=== PATIENT | female | born 1980 | race African-American/Black ===

== ENCOUNTER → 2016-07-31 | Outpatient (CLI) | payer BC ==
[~2016-07-31] MED LIST: ALEVE 220MG220 MG PO; BENADRYL25 M2 PO; CARAFATE 1GM1 G PO; DEXILANT30 MG PO; LIORESAL 1010 MG/TAB PO; MOBIC 7.5MG7.5 MG PO; MULTIPLE VITAMI1 CAP PO; NEURONTIN100 MG/CAP PO; NO HOME MEDICATIONS; NORCO 325 MG-51 TAB PO; PREVACID 15MG15 M1 PO; REGLAN 10MG10 MG/TAB PO
== END ==
LOC: MHCPAIN 12:08
DX: G89.29 Other chronic pain (principal); M47.817 Spondylosis without myelopathy or radiculopathy, lumbosacral region; M54.16 Radiculopathy, lumbar region; M53.3 Sacrococcygeal disorders, not elsewhere classified
CPT/HCPCS: G0463

== ENCOUNTER → 2016-09-11 | Outpatient (CLI) | payer BC | LOC: MHCPAIN 10:43 | DX: G89.29 Other chronic pain (principal); M47.817 Spondylosis without myelopathy or radiculopathy, lumbosacral region; M54.16 Radiculopathy, lumbar region; M53.3 Sacrococcygeal disorders, not elsewhere classified | CPT/HCPCS: G0463 ==

== ENCOUNTER 2016-09-25 08:44 | Outpatient (CLI) | payer BC ==
[2016-09-25] VITALS (7 sets, daily range): BP systolic 106–145; BP diastolic 67–89; PULSE 70–92
[~2016-09-25] VITALS: Ht 149.9 cm; Wt 47.7 kg
[~2016-09-25 08:44] MED LIST changes: -LIORESAL 1010 MG/TAB PO
[2016-09-25] MEDS ORDERED: LIORESAL 1010 MG/TAB PO (09:04)
[2016-09-25 16:48] LABS: CSF APPEARANCE CLEAR; CSF COLOR COLORLESS
[2016-09-25 20:17] LABS: CEREBROSPINAL TUBE #4
[2016-09-29 10:27] LABS: ALBUMIN CSF 9.4 mg/dL (<=27.0); CSF IGG/ALBUMIN 0.15 (<=0.21); CSF,IGG 1.4 mg/dL (<=8.1)
[2016-09-29 10:41] LABS: CSF-IGG INDEX 0.45 (<=0.85); IGG/ALBUMIN SERUM 0.33 (<=0.40)
== END 2016-09-25 12:33 | disposition home or self-care (01) ==
LOC: COL.RAD 08:44
PROVIDERS: Psychiatry & Neurology Neurology
DX: R20.0 Anesthesia of skin (principal); M79.651 Pain in right thigh

== ENCOUNTER → 2016-12-25 | Outpatient (CLI) | payer BC ==
[~2016-12-25] MED LIST changes: +LIORESAL 1010 MG/TAB PO
== END ==
LOC: MHCPAIN 09:42
DX: G89.29 Other chronic pain (principal); M47.27 Other spondylosis with radiculopathy, lumbosacral region; M53.3 Sacrococcygeal disorders, not elsewhere classified; M96.1 Postlaminectomy syndrome, not elsewhere classified; M47.814 Spondylosis without myelopathy or radiculopathy, thoracic region
CPT/HCPCS: G0463

== ENCOUNTER → 2017-04-09 | Outpatient (CLI) | payer BC | LOC: MHCPAIN 09:58 | DX: G89.29 Other chronic pain (principal); M47.817 Spondylosis without myelopathy or radiculopathy, lumbosacral region; M79.2 Neuralgia and neuritis, unspecified | CPT/HCPCS: G0463 ==

== ENCOUNTER → 2018-08-10 | Outpatient (CLI) | payer BC | LOC: COL.RAD 08-09 10:00 | DX: M47.26 Other spondylosis with radiculopathy, lumbar region (principal) ==

== ENCOUNTER → 2020-08-21 | Outpatient (CLI) | payer OTHER | LOC: MC.RAD 12:56 | DX: R92.2 Inconclusive mammogram (principal); N64.89 Other specified disorders of breast; R92.8 Other abnormal and inconclusive findings on diagnostic imaging of breast ==

== ENCOUNTER → 2020-08-28 | Outpatient (CLI) | payer OTHER | LOC: MC.RAD 08:18 | DX: D24.2 Benign neoplasm of left breast (principal) ==